=== PATIENT | female | born 1950 | race Two or more races ===

== ENCOUNTER 2017-10-13 11:00 | Outpatient (RCR) ==
--- NOTE | 2017-09-30 11:17 | RS.OPPTEV2 ---
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 pt had regained use of LLE and amb independently without AD, reports recently has begun having increased weakness in LLE and difficulty with balance and gait. Prior Level of Function.....Patient was independent with: ADL's, Self Care, Ambulation/Mobility, Community Integration/Access Functional Limitations: Standing, Squatting, Ambulation, Community Access/ Integration Current Subjective/complaints:: pt states that she has begun having increased weakness in LLE. pt has started using cane outside of the home. pt does report having pain in L hip as well. Treatment Side (optional): Left *Precautions: n/a Medical History Medical History: Hypertension, CVA/TIA (2009), COPD, Diabetes Medical History Comments:: osteoporosis Surgical History: Cholecystectomy, Hysterectomy Surgical History Comments:: kidney stones removed, stent in brain Smoking Status: Former smoker Diagnostic Testing/Imaging:: n/a Hx Home Medications: albuterol, amlodipine, aspirin, atorvastatin, calcium, chlorthalidone, citalopram, clopidogrel, furosemide, insulin glargine, ranitidine, sitagliptan-metformin, vit d3 Patient's Goals: be able to have increased strength and control of LLE Pain Assessment - Pain Description Pain Location: L hip Pain Description: Aching Current Pain Intensity: 2 Functional Outcome Measure LE Functional Scale: 24 (70%) Tinetti: 18 - G Codes & Severity Modifier G Codes & Modifier: mobility: walking and moving around current CL. mobility: walking and moving around goal CJ Source of G Code score: LE functional scale and PT eval Observation - Observation Inspection: pt with hamstring tightness LLE as well as piriformis and IT band tightness Posture: Forward Head, Rounded Shoulders, Increased Thoracic Kyphosis Handedness: Right Gait - Gait Pattern General Gait Pattern Observation: Ataxic Gait Gait Comments: pt amb with ataxic gait, with decreased stance time on L and decreased heel strike/toe off on LLE. pt amb in dept without AD General Range of Motion: WFL's Muscle Strength: RUE 5/5. LUE 4+/5. RLE 5/5. LLE hip flex 3+/5, knee flex 4-/ 5, knee ext 4/5, ankle DF/PF 4/5 Palpation Palpation Findings: Tenderness Comments:: L greater trochanter. Sensation - Sensation Right Upper Extremity: Intact/Normal Left Upper Extremity: Impaired Right Lower Extremity: Intact/Normal Left Lower Extremity: Impaired (pt with n/t LUE and LLE) Balance - Sitting Balance Static Sitting Balance: Good Dynamic Sitting Balance: Good - Standing Balance Static Standing Balance: Good Dynamic Standing Balance: Fair - Comments Balance Assessment Comments: Tinetti score: 18/28 consistent with high risk of falls. Interventions - Exercise/Activities/Manual Therapy Exercises/Activities: pt received hamstring/piriformis and IT band stretch. pt performed PF, LAQ, and hip abd with green t band, isometric hip add Total minutes of Exercise: 12 Manual Therapy: n/a HOME EXERCISE PROGRAM: pt given written HEP including: hamstring stretch, IT band stretch, PF, LAQ and hip abd with t band, isometric hip add - Charges Timed Code Treatment Minutes: 51 Total Treatment Time: 62 Procedures billed for this date of service:: eval med, ex EVALUATION COMPLEXITY LEVEL EVALUATION COMPLEXITY LEVEL: HISTORY: Medium (HTN, DM, COPD, CVA), EXAM OF BODY SYSTEMS: Medium (strength, balance, posture, gait), CLINICAL PRESENTATION: Medium (evolving), CLINICAL DECISION MAKING: Medium Assessment Assessment: pt presents with muscle weakness, muscle tightness, increased spasticity in LLE, late effect CVA. pt with decreased balance, risk of falls. Feel pt would benefit from PT for strengthening, balance as well as stretching to improve functional mobility and increased safety in the home. Patient Education: Home Exercise Program, Education of Plan of Care Rehab Potential: Good Short Term Goals Goal #1: pt with improved strength LLE 4- to 4/5 Goal to be met by: 10/20/17 Goal #2: pt with decreased muscle tightness hamstring and IT band Goal to be met by: 10/20/17 Goal #3: pt independent with intial HEP Goal to be met by: 10/20/17 Goal #4: improved gait sequencing in dept w improved heel strike/stance on LLE Goal to be met by: 10/20/17 Outside Machinist Supervisor Goals Goal #1: Improved dyn stand balance noted by tinetti score of 24/28=low risk of fall Goal to be met by: 11/10/17 Goal #2: pt with improved strength LLE 4+/5 Goal to be met by: 11/10/17 Goal #3: pt report increased ability to perform activities in home with no falls Goal to be met by: 11/10/17 Goal #4: pt report decreased pain in L hip with activity Goal to be met by: 11/10/17 Plan - Treatment to be Provided Procedures: Therapeutic Exercises, Therapeutic Activity, Gait Training, Neuromuscular Rehab, Patient Education Modalities: Cryotherapy, Hot Packs - Treatment Plan Frequency: 2-3x a week Duration: 6 weeks ORDER # VISITS AND/OR THROUGH DATE: 11/10/17 - Treatment Code (1) Ataxic gait Code(s): R26.0 - ATAXIC GAIT (2) Muscle weakness Code(s): M62.81 - MUSCLE WEAKNESS (GENERALIZED) (3) Impairment of balance Code(s): R26.89 - OTHER ABNORMALITIES OF GAIT AND MOBILITY
--- NOTE | 2017-10-03 15:10 | RS.OPPTDN ---
Subjective Date of Note: 10/03/17 Visit #: 2 Date of Evaluation: 09/29/17 Payer Source: MEDICARE Treatment Diagnosis: weakness L LE Current Subjective/complaints:: Patient reports left LE fatigues quickly with exercise and daily activities. Reports doing well with exercise today. *Precautions: n/a Interventions - Exercise/Activities/Manual Therapy Exercises/Activities: Began with bilateral hamstring, piriformis, SKTC, and left IT band stretch. Ankle pumps, isometric hip add, isometric ankle inversion. Green theraband for ankle df. Green theraband hip add and hip abd in hook-lying. 4# to each ankle for alt hip flexion and SAQ, 3s/10reps each. SLR and hip abd, 2s/10reps each with breaks. Pelvic tilt and modified bridge. In standing, toe-ups, mini-squats, marching, and alt hip abduction. Discussed safety, alt hamstring stretching, and HEP. Patient given copies of new exercises. Total minutes of Exercise: 42mins Manual Therapy: n/a HOME EXERCISE PROGRAM: pt given written HEP including: hamstring stretch, IT band stretch, PF, LAQ and hip abd with t band, isometric hip add, isometric ankle inversion. Standing toe-ups, mini-squats, marching, and alt hip abd. - Charges Timed Code Treatment Minutes: 42mins Total Treatment Time: 42mins Procedures billed for this date of service:: EX3 Assessment: Patient motivated to work on exercise to increase strength and balance to improve her functional activity level. Patient Education: Body/Joint mechanics, Home Exercise Program, Home Safety, Activity Modification Patient demonstrates compliance with HEP?: Yes Short Term Goals Goal #1: pt with improved strength LLE 4- to 4/5 Goal to be met by: 10/20/17 Goal #2: pt with decreased muscle tightness hamstring and IT band Goal to be met by: 10/20/17 Goal #3: pt independent with intial HEP Goal to be met by: 10/20/17 Progress towards Goal:: Progressing Goal #4: improved gait sequencing in dept w improved heel strike/stance on LLE Goal to be met by: 10/20/17 Correction Goals Goal #1: Improved dyn stand balance noted by tinetti score of 24/28=low risk of fall Goal to be met by: 11/10/17 Goal #2: pt with improved strength LLE 4+/5 Goal to be met by: 11/10/17 Goal #3: pt report increased ability to perform activities in home with no falls Goal to be met by: 11/10/17 Goal #4: pt report decreased pain in L hip with activity Goal to be met by: 11/10/17 Plan PLAN OF CARE EXPIRES ON:: 11/10/17 ORDER # VISITS AND/OR THROUGH DATE: 11/10/17 PLAN: Progress with exercise to increase patients functional activity level.
--- NOTE | 2017-10-05 15:16 | RS.OPPTDN ---
Subjective Date of Note: 10/05/17 Visit #: 3 Date of Evaluation: 09/29/17 Payer Source: MEDICARE Treatment Diagnosis: weakness L LE Current Subjective/complaints:: Patient reports mild soreness after last session , but states she feels like exercise and stretching is helping her. *Precautions: n/a Pain Assessment - Pain Description Pain Location: left lateral hip Pain Description: Tightness Current Pain Intensity: mild Other Comments regarding Pain:: Reports left lateral hip discomfort has improved since stretching last session. Interventions - Exercise/Activities/Manual Therapy Exercises/Activities: Bilateral hamstring, piriformis, SKTC, and left IT band stretch. Ankle pumps, isometric hip add, isometric ankle inversion. Green theraband for ankle df, inversion, and eversion. Green theraband hip add and hip abd in hook-lying. 4# to each ankle for alt hip flexion and SAQ, 3s/10reps each. Added 1# to SLR and 1# for SLR/VMO, 2s/10reps each with breaks. Pelvic tilt. Reveiwed toe-ups, mini-squats, marching, and alt hip abduction. Total minutes of Exercise: 39mins Manual Therapy: n/a HOME EXERCISE PROGRAM: pt given written HEP including: hamstring stretch, IT band stretch, PF, LAQ and hip abd with t band, isometric hip add, isometric ankle inversion. Standing toe-ups, mini-squats, marching, and alt hip abd. - Charges Timed Code Treatment Minutes: 39mins Total Treatment Time: 42mins Procedures billed for this date of service:: EX3 Assessment: Patient reporting progress with initial exercise. Patient Education: Body/Joint mechanics, Home Exercise Program, Home Safety, Activity Modification Patient demonstrates compliance with HEP?: Yes Short Term Goals Goal #1: pt with improved strength LLE 4- to 4/5 Goal to be met by: 10/20/17 Goal #2: pt with decreased muscle tightness hamstring and IT band Goal to be met by: 10/20/17 Progress towards Goal:: Progressing Goal #3: pt independent with intial HEP Goal to be met by: 10/20/17 Progress towards Goal:: Progressing Goal #4: improved gait sequencing in dept w improved heel strike/stance on LLE Goal to be met by: 10/20/17 Penitentiary Goals Goal #1: Improved dyn stand balance noted by tinetti score of 24/28=low risk of fall Goal to be met by: 11/10/17 Goal #2: pt with improved strength LLE 4+/5 Goal to be met by: 11/10/17 Goal #3: pt report increased ability to perform activities in home with no falls Goal to be met by: 11/10/17 Goal #4: pt report decreased pain in L hip with activity Goal to be met by: 11/10/17 Plan PLAN OF CARE EXPIRES ON:: 11/10/17 ORDER # VISITS AND/OR THROUGH DATE: 11/10/17 PLAN: Progress with stretching and strengthening exercise to improve patients functional activity level.
--- NOTE | 2017-10-11 14:26 | RS.OPPTDN ---
Subjective Date of Note: 10/11/17 Visit #: 4 Date of Evaluation: 09/29/17 Payer Source: MEDICARE Treatment Diagnosis: weakness L LE Current Subjective/complaints:: Patient reports she is feeling stronger and her mobility is better. *Precautions: n/a Pain Assessment - Pain Description Pain Location: left lateral hip Current Pain Intensity: mild Interventions - Exercise/Activities/Manual Therapy Exercises/Activities: Bilateral hamstring, piriformis, SKTC, and left IT band stretch. Also left anterior hip stretching at edge of table. Isometric hip add, isometric ankle inversion. Green theraband for ankle df, bilaterally. Green theraband hip add and hip abd in hook-lying. 4# to each ankle for alt hip flexion and SAQ, 3s/10reps each. 1# to SLR, 2s/10reps. Green theraband for resistive trunk rotation. Ended mat exercises for additional stretching. Stationary bike 4mins alt forward and retro revolution. Total minutes of Exercise: 40mins Manual Therapy: n/a HOME EXERCISE PROGRAM: pt given written HEP including: hamstring stretch, IT band stretch, PF, LAQ and hip abd with t band, isometric hip add, isometric ankle inversion. Standing toe-ups, mini-squats, marching, and alt hip abd. - Charges Timed Code Treatment Minutes: 40mins Total Treatment Time: 44mins Procedures billed for this date of service:: EX3 Assessment: Patient progressing with exercise and reports improvement in mobility with daily activities. Patient Education: Body/Joint mechanics, Home Exercise Program, Home Safety, Activity Modification Patient demonstrates compliance with HEP?: Yes Short Term Goals Goal #1: pt with improved strength LLE 4- to 4/5 Goal to be met by: 10/20/17 Goal #2: pt with decreased muscle tightness hamstring and IT band Goal to be met by: 10/20/17 Progress towards Goal:: Progressing Goal #3: pt independent with intial HEP Goal to be met by: 10/20/17 Progress towards Goal:: Partially Met Goal #4: improved gait sequencing in dept w improved heel strike/stance on LLE Goal to be met by: 10/20/17 Progress towards Goal:: Progressing Water Pump Operator Goals Goal #1: Improved dyn stand balance noted by tinetti score of 24/28=low risk of fall Goal to be met by: 11/10/17 Goal #2: pt with improved strength LLE 4+/5 Goal to be met by: 11/10/17 Goal #3: pt report increased ability to perform activities in home with no falls Goal to be met by: 11/10/17 Goal #4: pt report decreased pain in L hip with activity Goal to be met by: 11/10/17 Plan PLAN OF CARE EXPIRES ON:: 11/10/17 ORDER # VISITS AND/OR THROUGH DATE: 11/10/17 PLAN: Progress with strengthening to increase patients functional activity level.
--- NOTE | 2017-10-13 15:35 | RS.OPPTDN ---
Subjective Date of Note: 10/13/17 Visit #: 5 Date of Evaluation: 09/29/17 Payer Source: MEDICARE Treatment Diagnosis: weakness L LE Current Subjective/complaints:: Patient reports she had progressed well and feels she can stop PT at this time. Reports she is walking better and feels much stronger. States she will continue HEP. *Precautions: n/a Interventions - Exercise/Activities/Manual Therapy Exercises/Activities: Bilateral hamstring, piriformis, SKTC, and left IT band stretch. Also left anterior hip stretching at edge of table. Isometric hip add, isometric ankle inversion. Green theraband for ankle df, bilaterally. Green theraband hip add and hip abd in hook-lying. 4# to each ankle for alt hip flexion and SAQ. SLR and SLR/VMO, 2s/10reps. SLR circles, cw and ccw, 3s/5reps each. Green theraband for resistive trunk rotation. Ended mat exercises with additional stretching. Reveiwed standing exericse of toe-ups, mini-squats, march , and hip abd. Red theraband for scap retraction. Total minutes of Exercise: 41mins Manual Therapy: n/a HOME EXERCISE PROGRAM: pt given written HEP including: hamstring stretch, IT band stretch, PF, LAQ and hip abd with t band, isometric hip add, isometric ankle inversion. Standing toe-ups, mini-squats, marching, and alt hip abd. - Objective Findings Observations,measurements,etc.: Patient with increase in LE fuctional scale to 43/80 or 46.25% deficit (was 24/80 or 70% on Eval). Tinetti Balance score increase to 24/28 (was 18/24 on Eval). Left LE 4 to 4+/5 MMT. - Charges Timed Code Treatment Minutes: 41mins Total Treatment Time: 44mins Procedures billed for this date of service:: EX3 Assessment: Patient has progressed well with balance and strengthening. Met 7 of 8 treatment goals. Demos improved gait sequence and independent with HEP. Patient Education: Education of diagnosis, Body/Joint mechanics, Home Exercise Program, Home Safety, Activity Modification Comments: Reviewed and finalized HEP. Patient demonstrates compliance with HEP?: Yes Short Term Goals Goal #1: pt with improved strength LLE 4- to 4/5 Goal to be met by: 10/20/17 Progress towards Goal:: Met Goal #2: pt with decreased muscle tightness hamstring and IT band Goal to be met by: 10/20/17 Progress towards Goal:: Met Goal #3: pt independent with intial HEP Goal to be met by: 10/20/17 Progress towards Goal:: Met Goal #4: improved gait sequencing in dept w improved heel strike/stance on LLE Goal to be met by: 10/20/17 Progress towards Goal:: Met Architecture Professor Goals Goal #1: Improved dyn stand balance noted by tinetti score of 2428=low risk of fall Goal to be met by: 11/10/17 Progress towards goal: Met Goal #2: pt with improved strength LLE 4+/5 Goal to be met by: 11/10/17 Progress towards goal: Progressing Goal #3: pt report increased ability to perform activities in home with no falls Goal to be met by: 11/10/17 Progress towards goal: Met Goal #4: pt report decreased pain in L hip with activity Goal to be met by: 11/10/17 Progress towards goal: Met Plan PLAN OF CARE EXPIRES ON:: 11/10/17 ORDER # VISITS AND/OR THROUGH DATE: 11/10/17 PLAN: Discharge with HEP at patient request due to good progress.
--- NOTE | 2017-10-18 11:38 | RS.OPPTDC ---
Date of Discharge: 10/13/17 Date of Evaluation: 09/29/17 Number of Visits: 5 Treatment Diagnosis: weakness L LE Current Level of Function: LLE strength 4 to 4+/5, pt has met 7/8 goals. pt demonstrates good balance and consistent heel strike/toe off gait with no reports of falls. pt is independent with HEP. Current Complaints/Gains: pt reports she is walking better and doing HEP at home. pt states she is ready for DC due to good progress. Functional Outcome Measure LE Functional Scale: 43 Tinetti: 24 (improved from on eval) - G Codes & Severity Modifier G Codes & Modifier: mobility walking and moving around current CJ. moblity walking and moving around DC CK Source of G Code score: LE functional scale Observation - Observation Posture: Forward Head, Rounded Shoulders, Increased Thoracic Kyphosis, Decreased Lumbar Lordosis Gait - Gait Pattern Gait Comments: pt amb with consisitent heel strike/toe off gait pattern with no reports of falls. General Range of Motion: ROM WFL's Muscle Strength: LLE 4 to 4+/5, RLE 5/5 Interventions - Exercise/Activities/Manual Therapy Exercises/Activities: n/a Manual Therapy: n/a HOME EXERCISE PROGRAM: pt given written HEP including: hamstring stretch, IT band stretch, PF, LAQ and hip abd with t band, isometric hip add, isometric ankle inversion. Standing toe-ups, mini-squats, marching, and alt hip abd. - Charges Timed Code Treatment Minutes: n/a Total Treatment Time: n/a Procedures billed for this date of service:: n/a Assessment Assessment: pt has met 7/8 goals. pt made significant progress with gait and transfers as well as LE strength. pt feels she is ready for DC Patient Education: Home Exercise Program, Education of Plan of Care Rehab Potential: Good Short Term Goals Goal #1: pt with improved strength LLE 4- to 4/5 Goal to be met by: 10/20/17 Progress towards Goal:: Met Goal #2: pt with decreased muscle tightness hamstring and IT band Goal to be met by: 10/20/17 Progress towards Goal:: Met Goal #3: pt independent with intial HEP Goal to be met by: 10/20/17 Progress towards Goal:: Met Goal #4: improved gait sequencing in dept w improved heel strike/stance on LLE Goal to be met by: 10/20/17 Progress towards Goal:: Met Assisted Goals Goal #1: Improved dyn stand balance noted by tinetti score of =low risk of fall Goal to be met by: 11/10/17 Progress towards goal: Met Goal #2: pt with improved strength LLE 4+/5 Goal to be met by: 11/10/17 Progress towards goal: Progressing Goal #3: pt report increased ability to perform activities in home with no falls Goal to be met by: 11/10/17 Progress towards goal: Met Goal #4: pt report decreased pain in L hip with activity Goal to be met by: 11/10/17 Progress towards goal: Met Plan Comments: Most goals met, pt requests DC from PT
== END 2017-10-24 23:59 ==
PROVIDERS: ATTEND Internal Medicine
DX: R29.898 Other symptoms and signs involving the musculoskeletal system (principal); R26.0 Ataxic gait; M62.81 Muscle weakness (generalized); R26.89 Other abnormalities of gait and mobility

== ENCOUNTER 2018-05-29 09:45 | Outpatient (POV) | payer OTHER | END 2018-05-29 17:00 | LOC: OUTPT 09:45 | PROVIDERS: ATTEND Otolaryngology | DX: H91.90 Unspecified hearing loss, unspecified ear (principal) | CPT/HCPCS: 92557; 92567 ==

== ENCOUNTER 2018-07-08 10:50 | Outpatient (CLI) | payer OTHER | END 2018-07-08 11:07 | disposition short-term general hospital (02) | LOC: AMBL 10:50 | PROVIDERS: ATTEND Internal Medicine Geriatric Medicine | DX: R06.02 Shortness of breath (principal); R53.1 Weakness; Z98.890 Other specified postprocedural states; Z86.73 Personal history of transient ischemic attack (TIA), and cerebral infarction without residual deficits; J44.9 Chronic obstructive pulmonary disease, unspecified ==

== ENCOUNTER 2018-08-23 10:00 | Outpatient (RCR) ==
--- NOTE | 2018-07-31 16:50 | RS.CSNOTE ---
PT Case Note Date of Note: 07/31/18 Title of document: Call back from Dr. Pedroza's office Note: Holly from Dr. Pedroza's office returned our call regarding the sling and stated it is documented that Mrs. Magallanes discontinued use of the sling against medical advice.
--- NOTE | 2018-07-31 16:53 | RS.OPPTEV2 ---
Date of Note: 07/31/18 Visit #: 1 Number of visits approved by Insurance: NA Date of Evaluation: 07/31/18 Payer Source: MEDICARE Surgery Performed?: Yes Procedure Performed: Reverse Total shoulder Arthroplasty Date of Procedure: 07/05/18 Treatment Diagnosis: Right shoulder stiffness, right shoulder weakness, s/p R Reverse TSR History of Condition/Mechanism of Injury:: Patient reports progressive right shoulder pain and limitation led her to have surgery. Prior Level of Function.....Patient was independent with: ADL's, Self Care, Caregiving, Ambulation/Mobility, Community Integration/Access Functional Limitations: Sleep, Self Care, ADL's, Reaching, Pushing, Pulling, Lifting, Carrying, Sitting, Squatting, Community Access/Integration Current Subjective/complaints:: Ms. Magallanes reports having a complicated course of recovery following her shoulder surgery. States she had surgery and went home the next day. On 07/07/18, she was found unresponsive and was taken as a direct admit to [facility] ICU. She had a Myocardial Infarction. She was in the hospital for approximately eleven days. She is doing much better now. She reported being unable to tolerate the sling for the right shoulder and states Dr. Pedroza's PA, Alessio, told her that she not longer had to wear it. She is right hand dominant. States she has had a difficult time with selfcare and ADL's. States her has been helping her get dressed and with other ADL' s. States she may be using the right UE more than she should. States she does not have pain in the right shoulder. She has not taken pain medication in several weeks. States the left shoulder is in good shape. Treatment Side (optional): Right *Precautions: Right Reverse TSR, No AROM at this time NO abduction or IR and extension Medical History Medical History: Hypertension, CVA/TIA (2010, affecting left side), COPD, Diabetes Medical History Comments:: osteoporosis Surgical History: Cholecystectomy, Hysterectomy Surgical History Comments:: kidney stones removed, stent in brain, ME and heart cath mid June 2018 Smoking Status: Former smoker Hx Home Medications: albuterol, amlodipine, aspirin, atorvastatin, calcium, chlorthalidone, citalopram, clopidogrel, furosemide, insulin glargine, ranitidine, sitagliptan-metformin, vit d3 Patient's Goals: Her goal is to regain functional right UE ROM and return to her previous level of independence. Pain Assessment - Pain Description Pain Location: right shoulder Current Pain Intensity: 0/10 Functional Outcome Measure UE Functional Index: 0 (0/97=678% impairment) - G Codes & Severity Modifier G Codes & Modifier: NA Source of G Code score: NA Observation - Observation Inspection: Incision to right shoulder is clean and healing well. Presents to have been closed with dermabond. Presents with no redness or other signs of infection. Demonstrates bruising at right axilla and triceps region. Posture: Forward Head, Rounded Shoulders Handedness: Right Shoulder ROM: Left WFL's Shoulder Muscle Strength: Left WFL's - Right Shoulder ROM Comments: Right shoulder PROM: elevation to 95 degrees. Demonstrates full right elbow, wrist, and hand AROM. Pipe Insulator Helper Strength Left Hand Pipe Insulator Helper Strength: 46 lbs. Right Hand Pipe Insulator Helper Strength: 40 lbs. Dynamometer Testing Position: 2nd Position Palpation Comments:: Reports no tenderness throughout right shoulder joint. Sensation - Sensation Right Upper Extremity: Intact/Normal Left Upper Extremity: Intact/Normal Interventions - Exercise/Activities/Manual Therapy Exercises/Activities: Patient received PROM into elevation. Discussed surgical precautions and protocol. Advised her to not use the right UE for selfcare and ADL's and not to raise the right UE at the shoulder. Instructed in pendulum ex, scapular retraction (with no shoulder extension), elbow and wrist AROM ex's for HEP. Total minutes of Exercise: X 19 mins Manual Therapy: n/a HOME EXERCISE PROGRAM: pendulum ex, scapular retraction (with no shoulder extension), elbow and wrist AROM ex's - Charges Timed Code Treatment Minutes: 19 mins Total Treatment Time: 58 mins Procedures billed for this date of service:: EVAL Low, EX EVALUATION COMPLEXITY LEVEL EVALUATION COMPLEXITY LEVEL: HISTORY: Medium (Hx CVA, recent ME, Diabetes), EXAM OF BODY SYSTEMS: Low (Right shoulder ROM, exam of incision, sensation), CLINICAL PRESENTATION: Low, CLINICAL DECISION MAKING: Low Assessment Assessment: Mrs. Magallanes presents ~ 4 weeks s/p right Reverse TSR. She presents to therapy without a sling. We are in the process of confirming use of sling with Dr. Pedroza's office. She is unable to use the right UE at this time based on Reverse TSR protocol. She requires assitance from her for selfcare and ADL's due to being right hand dominant. She demonstrates great potential to regain functional use of the right UE with skilled therapy to progress ex's and activities per protocol. Patient Education: Education of diagnosis, Body/Joint mechanics, Home Exercise Program, Home Safety, Activity Modification, Education of Plan of Care Rehab Potential: Good Short Term Goals Goal #1: Patient independent and compliant with HEP and surgery precautions. Goal to be met by: 08/14/18 Goal #2: PROM right shoulder elevation WFL's. Goal to be met by: 08/14/18 Goal #3: Patient to demonstrate good postural awareness. Goal to be met by: 08/14/18 Goal #4: . Fpc Goals Goal #1: Pt knows HEP and to continue ex's to maintain level of function at D/C. Goal to be met by: 10/23/18 Goal #2: Score on UE functional scale improved to 40/80. Goal to be met by: 10/23/18 Goal #3: Pt able to use right UE for selfcare and light ADL's w/ min. difficulty. Goal to be met by: 10/23/18 Goal #4: Patient to report no pain in the right shoulder at rest or w/ activity. Goal to be met by: 10/23/18 Plan - Treatment to be Provided Procedures: Therapeutic Exercises, Therapeutic Activity, Patient Education Modalities: Cryotherapy, Hot Packs (prior to stretching if necessary) - Treatment Plan Frequency: 3 X week Duration: 12 weeks Dates of Fpc Goals: 10/23/18 Expiration date of current Insurance Approval:: NA - Treatment Code (1) Shoulder stiffness Qualifiers: Laterality: right Qualified Code(s): M25.611 - Stiffness of right shoulder , not elsewhere classified (2) Shoulder weakness Code(s): M62.81 - MUSCLE WEAKNESS (GENERALIZED) Comments: M62.81 Right shoulder weakness (3) Shoulder pain Code(s): M25.519 - PAIN IN UNSPECIFIED SHOULDER Qualifiers: Chronicity: acute Laterality: right Qualified Code(s): M25.511 - Pain in right shoulder (4) Aftercare following joint replacement surgery Code(s): Z47.1 - AFTERCARE FOLLOWING JOINT REPLACEMENT SURGERY Qualifiers: Joint replacement surgery site: shoulder Laterality: right Qualified Code (s): Z47.1 - Aftercare following joint replacement surgery; Z96.611 - Presence of right artificial shoulder joint
--- NOTE | 2018-08-01 14:22 | RS.OPPTDN ---
Subjective Date of Note: 08/01/18 Visit #: 2 Number of visits approved by Insurance: na Date of Evaluation: 07/31/18 Payer Source: MEDICARE Treatment Diagnosis: Right shoulder stiffness, right shoulder weakness, s/p R Reverse TSR Current Subjective/complaints:: Patient reports soreness right shoulder and upper arm with ROM and MT today. States she understands she will need to resume wearing immobilizer sling. *Precautions: Right Reverse TSR, No AROM at this time NO abduction or IR and extension Pain Assessment - Pain Description Pain Location: right shoulder, upper arm Pain Description: Tightness, Aching Current Pain Intensity: mild Interventions - Exercise/Activities/Manual Therapy Exercises/Activities: Patient advised PT did speak with physicians office and patient is to resume using sling. Patient received PROM into flexion, scaption, and limited abduction. Patient instructed to avoid right shoulder ER. Assisted passive right elbow flexion and extension. Manual therapy of light directional massage to the right biceps. Total minutes of Exercise: 33mins Manual Therapy: n/a HOME EXERCISE PROGRAM: pendulum ex, scapular retraction (with no shoulder extension), elbow and wrist AROM ex's - Charges Timed Code Treatment Minutes: 33mins Total Treatment Time: 35mins Procedures billed for this date of service:: EX2 Assessment: Patient tolerates PROM well. She has been advised she is to resume wearing right shoulder immobilizer sling per protocol confirmed by physicians office. Patient Education: Education of diagnosis, Body/Joint mechanics, Home Exercise Program, Home Safety, Activity Modification Comments: Extensive patient education of safety precautions with all ADL's. Patient demonstrates compliance with HEP?: Yes Short Term Goals Goal #1: Patient independent and compliant with HEP and surgery precautions. Goal to be met by: 08/14/18 Progress towards Goal:: Progressing Goal #2: PROM right shoulder elevation WFL's. Goal to be met by: 08/14/18 Goal #3: Patient to demonstrate good postural awareness. Goal to be met by: 08/14/18 Goal #4: . Stars Specialist Goals Goal #1: Pt knows HEP and to continue ex's to maintain level of function at D/C. Goal to be met by: 10/23/18 Goal #2: Score on UE functional scale improved to 40/80. Goal to be met by: 10/23/18 Goal #3: Pt able to use right UE for selfcare and light ADL's w/ min. difficulty. Goal to be met by: 10/23/18 Goal #4: Patient to report no pain in the right shoulder at rest or w/ activity. Goal to be met by: 10/23/18 Plan Dates of Stars Specialist Goals: 10/23/18 Expiration date of current Insurance Approval:: 10/23/18 PLAN: Progress exercise per protocol.
--- NOTE | 2018-08-03 11:27 | RS.OPPTDN ---
Subjective Date of Note: 08/03/18 Visit #: 3 Number of visits approved by Insurance: na Date of Evaluation: 07/31/18 Payer Source: MEDICARE Treatment Diagnosis: Right shoulder stiffness, right shoulder weakness, s/p R Reverse TSR Current Subjective/complaints:: Patient reports a slight increase in soreness following last session. States she is wearing immobilizer sling as instructed, but has difficulty positioning in bed. *Precautions: Right Reverse TSR, No AROM at this time NO abduction or IR and extension Pain Assessment - Pain Description Pain Location: right shoulder and upper arm Pain Description: soreness Current Pain Intensity: mild Interventions - Exercise/Activities/Manual Therapy Exercises/Activities: Patient received PROM into flexion, scaption, and limited abduction. Assisted with scap elevation/depression and retraction/protaction, UE supported. Assisted passive right elbow flexion and extension. Manual therapy of light directional massage to the right biceps. Total minutes of Exercise: 34mins Manual Therapy: n/a HOME EXERCISE PROGRAM: pendulum ex, scapular retraction (with no shoulder extension), elbow and wrist AROM ex's - Objective Findings Observations,measurements,etc.: Patient presents to department wearing sling as instructed. - Charges Timed Code Treatment Minutes: 34mins Total Treatment Time: 35mins Procedures billed for this date of service:: EX2 Assessment: Patient progressing with PROM and appears to be following protocol. Patient Education: Education of diagnosis, Body/Joint mechanics, Home Exercise Program, Home Safety, Activity Modification Patient demonstrates compliance with HEP?: Yes Short Term Goals Goal #1: Patient independent and compliant with HEP and surgery precautions. Goal to be met by: 08/14/18 Progress towards Goal:: Progressing Goal #2: PROM right shoulder elevation WFL's. Goal to be met by: 08/14/18 Progress towards Goal:: Progressing Goal #3: Patient to demonstrate good postural awareness. Goal to be met by: 08/14/18 Progress towards Goal:: Progressing Goal #4: . Concrete Floater Goals Goal #1: Pt knows HEP and to continue ex's to maintain level of function at D/C. Goal to be met by: 10/23/18 Goal #2: Score on UE functional scale improved to 40/80. Goal to be met by: 10/23/18 Goal #3: Pt able to use right UE for selfcare and light ADL's w/ min. difficulty. Goal to be met by: 10/23/18 Goal #4: Patient to report no pain in the right shoulder at rest or w/ activity. Goal to be met by: 10/23/18 Plan Dates of Care Home Goals: 10/23/18 Expiration date of current Insurance Approval:: 10/23/18 PLAN: Progress ROM per protocol.
--- NOTE | 2018-08-06 16:10 | RS.CXNS ---
Date of scheduled appointment: 08/06/18 Type: Cancel (Patient calls to cancel appointment. States her blood sugar is up and has been told she will be seen by her physician today.)
--- NOTE | 2018-08-08 12:06 | RS.OPPTDN ---
Subjective Date of Note: 08/08/18 Visit #: 4 Number of visits approved by Insurance: na Date of Evaluation: 07/31/18 Payer Source: MEDICARE Treatment Diagnosis: Right shoulder stiffness, right shoulder weakness, s/p R Reverse TSR Current Subjective/complaints:: Patient reports doing better getting clothes off and on. States she has no pain at rest and is careful not to use the right UE. *Precautions: Right Reverse TSR, No AROM at this time NO abduction or IR and extension Pain Assessment - Pain Description Pain Location: right shoulder and upper arm Pain Description: Tightness, Aching Current Pain Intensity: mild to mod with ROM Interventions - Exercise/Activities/Manual Therapy Exercises/Activities: Patient received PROM into flexion, scaption, and limited abduction. Assisted with scap elevation/depression and retraction/protaction, UE supported. Assisted passive right elbow flexion and extension. Manual therapy of light directional massage to the right biceps. Began light isometric right shoulder add with ball, multiple sets of 5reps. In sitting, assisted lateral cervical flexion stretch. Total minutes of Exercise: 34mins Manual Therapy: n/a HOME EXERCISE PROGRAM: pendulum ex, scapular retraction (with no shoulder extension), elbow and wrist AROM ex's - Charges Timed Code Treatment Minutes: 34mins Total Treatment Time: 37mins Procedures billed for this date of service:: EX2 Assessment: Patient tolerating an increase in PROM of the right shoulder and starting isometrics today. Patient Education: Body/Joint mechanics, Home Exercise Program, Home Safety, Activity Modification Comments: Patient reminded she is to be wearing right shoulder immobilizer sling as instructed by physician. Patient demonstrates compliance with HEP?: Yes Short Term Goals Goal #1: Patient independent and compliant with HEP and surgery precautions. Goal to be met by: 08/14/18 Progress towards Goal:: Progressing Goal #2: PROM right shoulder elevation WFL's. Goal to be met by: 08/14/18 Progress towards Goal:: Progressing Goal #3: Patient to demonstrate good postural awareness. Goal to be met by: 08/14/18 Progress towards Goal:: Progressing Goal #4: . Alf Goals Goal #1: Pt knows HEP and to continue ex's to maintain level of function at D/C. Goal to be met by: 10/23/18 Goal #2: Score on UE functional scale improved to 40/80. Goal to be met by: 10/23/18 Goal #3: Pt able to use right UE for selfcare and light ADL's w/ min. difficulty. Goal to be met by: 10/23/18 Goal #4: Patient to report no pain in the right shoulder at rest or w/ activity. Goal to be met by: 10/23/18 Plan Dates of Alf Goals: 10/23/18 Expiration date of current Insurance Approval:: 10/23/18 PLAN: Progress ROM and light strengthening as tolerated per protocol.
--- NOTE | 2018-08-14 14:37 | RS.OPPTDN ---
Subjective Date of Note: 08/14/18 Visit #: 5 Number of visits approved by Insurance: na Date of Evaluation: 07/31/18 Payer Source: MEDICARE Treatment Diagnosis: Right shoulder stiffness, right shoulder weakness, s/p R Reverse TSR Current Subjective/complaints:: Reports she is progressing well. States she has right shoulder stiffness, but very little pain. *Precautions: Right Reverse TSR, No AROM at this time NO abduction or IR and extension Pain Assessment - Pain Description Pain Location: right shoulder joint Pain Description: Tightness Pain Description: stiffness Current Pain Intensity: mild, no pain at rest Interventions - Exercise/Activities/Manual Therapy Exercises/Activities: Patient received PROM into flexion, scaption, and limited abduction. Assisted with scap elevation/depression and retraction/protaction, UE supported. Assisted passive right elbow flexion and extension. Light isometric right shoulder add and ext with ball, multiple sets of 5reps. Wand overhead for scap pro/retraction and short flex/ext, both in supine with assist. In sitting, shoulder shrugs and scap retraction. Discussion of Codmans and table slides. Pt education of safety. Total minutes of Exercise: 27mins Manual Therapy: n/a HOME EXERCISE PROGRAM: pendulum ex, scapular retraction (with no shoulder extension), elbow and wrist AROM ex's - Objective Findings Observations,measurements,etc.: Passive right shoulder flexion 147 degrees, abduction 122 degrees. - Charges Timed Code Treatment Minutes: 27mins Total Treatment Time: 32mins Procedures billed for this date of service:: EX2 Assessment: Patient making slow but steady progress. Patient Education: Body/Joint mechanics, Home Exercise Program, Home Safety, Activity Modification Patient demonstrates compliance with HEP?: Yes Short Term Goals Goal #1: Patient independent and compliant with HEP and surgery precautions. Goal to be met by: 08/14/18 Progress towards Goal:: Progressing Goal #2: PROM right shoulder elevation WFL's. Goal to be met by: 08/14/18 Progress towards Goal:: Progressing Goal #3: Patient to demonstrate good postural awareness. Goal to be met by: 08/14/18 Progress towards Goal:: Progressing Goal #4: . Organ Grinder Goals Goal #1: Pt knows HEP and to continue ex's to maintain level of function at D/C. Goal to be met by: 10/23/18 Goal #2: Score on UE functional scale improved to 40/80. Goal to be met by: 10/23/18 Goal #3: Pt able to use right UE for selfcare and light ADL's w/ min. difficulty. Goal to be met by: 10/23/18 Progress towards goal: Progressing Goal #4: Patient to report no pain in the right shoulder at rest or w/ activity. Goal to be met by: 10/23/18 Plan Dates of Organ Grinder Goals: 10/23/18 Expiration date of current Insurance Approval:: 10/23/18 PLAN: Progress with ROM and light active exercise as tolerated and per protocol.
--- NOTE | 2018-08-16 13:08 | RS.OPPTDN ---
Subjective Date of Note: 08/16/18 Visit #: 6 Number of visits approved by Insurance: na Date of Evaluation: 07/31/18 Payer Source: MEDICARE Treatment Diagnosis: Right shoulder stiffness, right shoulder weakness, s/p R Reverse TSR Current Subjective/complaints:: Reports better tolerance of PROM of the right shoulder. *Precautions: Right Reverse TSR, No AROM at this time NO abduction or IR and extension Pain Assessment - Pain Description Pain Location: right shoulder Pain Description: Tightness Current Pain Intensity: mild with ROM Interventions - Exercise/Activities/Manual Therapy Exercises/Activities: Patient received PROM into flexion, scaption, and limited abduction. Assisted with scap elevation/depression and retraction/protaction, UE supported. Passive right elbow flexion and extension. Light isometric right shoulder add and ext. Began light isometric right shoulder abd, IR, and ER. Wand overhead for scap pro/retraction, short flex/ext, and chest press. In sitting, shoulder shrugs and scap retraction. Reviewed safety precautions and need to wear sling. Total minutes of Exercise: 32mins Manual Therapy: n/a HOME EXERCISE PROGRAM: pendulum ex, scapular retraction (with no shoulder extension), elbow and wrist AROM ex's - Charges Timed Code Treatment Minutes: 32mins Total Treatment Time: 32mins Procedures billed for this date of service:: EX2 Assessment: Patient progressing with PROM and light isometrics. Patient Education: Body/Joint mechanics, Home Exercise Program, Home Safety, Activity Modification Patient demonstrates compliance with HEP?: Yes Short Term Goals Goal #1: Patient independent and compliant with HEP and surgery precautions. Goal to be met by: 08/14/18 Progress towards Goal:: Progressing Goal #2: PROM right shoulder elevation WFL's. Goal to be met by: 08/14/18 Progress towards Goal:: Progressing Goal #3: Patient to demonstrate good postural awareness. Goal to be met by: 08/14/18 Progress towards Goal:: Progressing Goal #4: . Credit Product Analyst Goals Goal #1: Pt knows HEP and to continue ex's to maintain level of function at D/C. Goal to be met by: 10/23/18 Goal #2: Score on UE functional scale improved to 40/80. Goal to be met by: 10/23/18 Goal #3: Pt able to use right UE for selfcare and light ADL's w/ min. difficulty. Goal to be met by: 10/23/18 Progress towards goal: Progressing Goal #4: Patient to report no pain in the right shoulder at rest or w/ activity. Goal to be met by: 10/23/18 Plan Dates of Credit Product Analyst Goals: 10/23/18 Expiration date of current Insurance Approval:: 10/23/18 PLAN: Progress per protocol.
--- NOTE | 2018-08-21 12:00 | RS.OPPTDN ---
Subjective Date of Note: 08/21/18 Visit #: 7 Number of visits approved by Insurance: na Date of Evaluation: 07/31/18 Payer Source: MEDICARE Treatment Diagnosis: Right shoulder stiffness, right shoulder weakness, s/p R Reverse TSR Current Subjective/complaints:: Patient reports she is working on HEP and careful to avoid lifting. States she will see physician for a follow-up on Monday of this week. *Precautions: Right Reverse TSR, No AROM at this time NO abduction or IR and extension Pain Assessment - Pain Description Pain Location: right shoulder Current Pain Intensity: mild, no pain at rest Interventions - Exercise/Activities/Manual Therapy Exercises/Activities: Progression of exercise as patient is in 7th week post op. Patient received PROM into flexion, scaption, and limited abduction. Assisted with scap elevation/depression and retraction/protaction, UE supported. Light isometric right shoulder abd, add and ext, sets of 5reps. Light right shoulder IR and ER. Isometric elbow flex and ext. Wand overhead for scap pro/retraction, short flex/ext, and chest press, with assist. In sitting, shoulder shrugs and scap retraction. Began overhead pulleys per protocol. Total minutes of Exercise: 41mins Manual Therapy: n/a HOME EXERCISE PROGRAM: pendulum ex, scapular retraction (with no shoulder extension), elbow and wrist AROM ex's - Charges Timed Code Treatment Minutes: 41mins Total Treatment Time: 41mins Procedures billed for this date of service:: EX3 Assessment: Pt progressing well with protocol. She has been instructed in safaety precautions and not to overuse right UE with light ADL's. Patient Education: Body/Joint mechanics, Home Exercise Program, Home Safety, Activity Modification Comments: Pt may now go without sling per protocol. Patient demonstrates compliance with HEP?: Yes Short Term Goals Goal #1: Patient independent and compliant with HEP and surgery precautions. Goal to be met by: 08/14/18 Progress towards Goal:: Met Goal #2: PROM right shoulder elevation WFL's. Goal to be met by: 08/14/18 Progress towards Goal:: Progressing Goal #3: Patient to demonstrate good postural awareness. Goal to be met by: 08/14/18 Progress towards Goal:: Progressing Goal #4: . Snf Goals Goal #1: Pt knows HEP and to continue ex's to maintain level of function at D/C. Goal to be met by: 10/23/18 Goal #2: Score on UE functional scale improved to 40/80. Goal to be met by: 10/23/18 Goal #3: Pt able to use right UE for selfcare and light ADL's w/ min. difficulty. Goal to be met by: 10/23/18 Progress towards goal: Progressing Goal #4: Patient to report no pain in the right shoulder at rest or w/ activity. Goal to be met by: 10/23/18 Plan Dates of Snf Goals: 10/23/18 Expiration date of current Insurance Approval:: 10/23/18 PLAN: Progress per protocol.
--- NOTE | 2018-08-23 12:05 | RS.OPPTDN ---
Subjective Date of Note: 08/23/18 Visit #: 8 Number of visits approved by Insurance: na Date of Evaluation: 07/31/18 Payer Source: MEDICARE Treatment Diagnosis: Right shoulder stiffness, right shoulder weakness, s/p R Reverse TSR Current Subjective/complaints:: Patient reports she is progressing well. States she is careful not to use the right UE with any lifting with ADL's. States she has no pain, only mild discomfort and tightness with end range stretching. *Precautions: Right Reverse TSR, No AROM at this time NO abduction or IR and extension Pain Assessment - Pain Description Pain Location: right shoulder Pain Description: Tightness Pain Description: tightness, stiffness Current Pain Intensity: 0 Interventions - Exercise/Activities/Manual Therapy Exercises/Activities: Progression of exercise per protocol, 7th week post op. Patient received PROM into flexion, scaption, and limited abduction. Passive biceps stretch throughout session. Assisted with scap elevation/depression and retraction/protaction. Light isometric right shoulder abd, add and ext, sets of 5reps. Light isometric right shoulder IR and ER, and elbow flex and ext. Hold ball, overhead for scap pro/retraction, short flex/ext, and chest press, with and witout assist. In sitting, shoulder shrugs and scap retraction. Assisted bilateral shoulder flexion with hands clasped. Began resisted scap protaction at wall with ball. Overhead pulleys. Total minutes of Exercise: 42mins Manual Therapy: n/a HOME EXERCISE PROGRAM: pendulum ex, scapular retraction (with no shoulder extension), elbow and wrist AROM ex's - Objective Findings Observations,measurements,etc.: Right shoulder flexion to 152 degrees and passive 157 degrees. Right shoulder passive abd to 122 degrees. All in supine. Right hand charger 46# with left (unaffected) at 53#. - Charges Timed Code Treatment Minutes: 42mins Total Treatment Time: 42mins Procedures billed for this date of service:: EX3 Assessment: Patient progressing well with ROM and charger strength essentially equal in hands. She is doing more light ADL's at home. Patient Education: Body/Joint mechanics, Home Exercise Program, Home Safety, Activity Modification Comments: Patietn again instructed to avoid forward reaching away from body and any lifting during this healing phase. Patient demonstrates compliance with HEP?: Yes Short Term Goals Goal #1: Patient independent and compliant with HEP and surgery precautions. Goal to be met by: 08/14/18 Progress towards Goal:: Met Goal #2: PROM right shoulder elevation WFL's. Goal to be met by: 08/14/18 Progress towards Goal:: Progressing Goal #3: Patient to demonstrate good postural awareness. Goal to be met by: 08/14/18 Progress towards Goal:: Progressing [facility] Goals Goal #1: Pt knows HEP and to continue ex's to maintain level of function at D/C. Goal to be met by: 10/23/18 Goal #2: Score on UE functional scale improved to 40/80. Goal to be met by: 10/23/18 Goal #3: Pt able to use right UE for selfcare and light ADL's w/ min. difficulty. Goal to be met by: 10/23/18 Progress towards goal: Progressing Goal #4: Patient to report no pain in the right shoulder at rest or w/ activity. Goal to be met by: 10/23/18 Progress towards goal: Progressing Plan Dates of Provider Contracting Consultant Goals: 10/23/18 Expiration date of current Insurance Approval:: 10/23/18 PLAN: Patient scheduled for a follow-up with physicians office. Will plan to progress per protocol.
== END 2018-08-24 23:59 | disposition short-term general hospital (02) ==
PROVIDERS: ATTEND Orthopaedic Surgery
DX: Z47.89 Encounter for other orthopedic aftercare (principal)